=== PATIENT | male | born 1930 | race American Indian/Alaskan Native ===

== ENCOUNTER 2016-06-17 19:53 | Emergency (ER) | payer MEDICARE ==
[2016-06-17 20:00] VITALS: BMI 20.3
[2016-06-17] MEDS ORDERED: Sodium Chloride 0.9% 1,000 ML IV STA (20:10)
[2016-06-17] MEDS ORDERED: TDAP Vaccine 0.5 mL Syr IM ONE (20:10)
[2016-06-17 20:14] VITALS: BP 120/61; PULSE 70; RESP 18; TEMP 97.6; O2SAT 97
--- NOTE | 2016-06-17 20:15 | ED PDOC ---
Arrival/HPI - General Chief Complaint: Trauma Time Seen by Provider: 06/17/16 19:59 Historian: Patient - History of Present Illness Narrative History of Present Illness (Text): 06/17/16 20:12 85 y.o. male whose PMHx includes HTN who according to the , the patient fell and hit his head on the edge of the bed. The son says that when he got there he was unarousable but then eventually started moving. The patient does not recall the event and admits to a headache. No cp or sob or abd pain or n/v or fever. says he drank some etoh earlier. Time/Duration: Prior to Arrival Past Medical History - Cardiac Hx Hypertension: Yes ("borderline") - Psychiatric Hx Substance Use: No - Surgical History Hx Cholecystectomy: Yes Other/Comment: Hernia Sx Family/Social History Family/Social History: Unknown Family HX Smoking Status: Former Smoker Hx Alcohol Use: Yes Frequency of alcohol use: Few days per week Hx Substance Use: No Allergies/Home Meds Allergies/Adverse Reactions: Allergies No Known Allergies Allergy (Verified 06/17/16 20:00) Home Medications: Home Meds Medication Instructions Recorded Confirmed Unobtainable 06/18/16 06/18/16 Review of Systems - Review of Systems Constitutional: absent: Fevers Eyes: Normal ENT: Normal Respiratory: absent: SOB Cardiovascular: Syncope Gastrointestinal: absent: Abdominal Pain, Nausea, Vomiting Genitourinary Male: absent: Dysuria Neurological: Headache. absent: Focal Weakness Physical Exam Vital Signs Temp Pulse Resp BP Pulse Ox 06/17/16 20:10 97.6 F 70 18 120/61 97 Temperature: Afebrile Blood Pressure: Normal Pulse: Regular Respiratory Rate: Normal Appearance: Positive for: Well-Appearing, Non-Toxic, Comfortable Pain Distress: None Mental Status: Positive for: other (Awake, alert, and oriented to person, place , not to time) - Systems Exam Head: Present: Normocephalic, Tenderness, Laceration (There is a 5 cm curved linear laceration if the left parietal area) Pupils: Present: PERRL Extroacular Muscles: Present: EOMI Conjunctiva: Present: Normal Mouth: Present: Moist Mucous Membranes Pharnyx: Present: Normal. No: ERYTHEMA Neck: Present: Normal Range of Motion Respiratory/Chest: Present: Clear to Auscultation, Good Air Exchange. No: Respiratory Distress, Accessory Muscle Use Cardiovascular: Present: Regular Rate and Rhythm, Normal S1, S2. No: Murmurs Abdomen: Present: Normal Bowel Sounds. No: Tenderness, Distention, Peritoneal Signs Back: Present: Normal Inspection. No: Midline Tenderness Upper Extremity: Present: Normal Inspection. No: Cyanosis, Edema Lower Extremity: Present: Normal Inspection. No: Edema Neurological: Present: GCS=15, CN II-XII Intact, Speech Normal Skin: Present: Warm Psychiatric: Present: Alert Medical Decision Making ED Course and Treatment: 06/17/16 23:54 Impression: Patient is a 85 year old male who presents to the emergency department for evaluation of laceration to left parietal area s/p fall from bed prior to arrival. Differential Diagnosis include but are not limited to: Syncope vs alcohol intoxication vs. electrolyte abnormality Plan: -- CT Cervical Spine -- CT head -- EKG -- Labs, cardiac enzymes -- Alcohol level -- Chest X-ray -- IV fluids -- Pelvis X-ray -- Urinalysis -- Reassess and disposition Progress Notes: CT Head results reviewed: IMPRESSION: Subacute/chronic right subdural collection; no acute hemorrhage; atrophy; sinusitis 06/18/16 00:37 CT cervical spine results reviewed: IMPRESSION: Degenerative change, no fracture; dental disease Chest X-ray and Pelvic X-ray No acute findings. 06/18/16 00:43 PROCEDURE: LACERATION REPAIR Performed by the emergency provider Location: Left parietal area Length: 5 cm Description: clean wound edges, no foreign bodies Anesthesia: Lidocaine 1% with epi. Preparation: The wound was irrigated with copious amounts of fluids. The area was prepped and draped in the usual sterile fashion. Exploration: The wound was explored and no foreign bodies were found. Procedure: The wound was closed with 11 leslie. There was good approximation. Post-Procedure: Good closure and hemostasis. The patient tolerated the procedure well and there were no complications. Patient subdural noted on CT scan of the brain; likely chronic. Patient's labs also show dehydration with some etoh on board, a level of 100. Given the history and concern for possible cardiogenic or neurogenic syncope, he needs to be admitted to the hospital. However he is refusing. He is fully awake, alert , and oriented x 3 at this time and understands fully the risks of leaving, including heart attack, arrhythmia, stroke, worsening bleed or permanent disability. He is still insistent on leaving. I had this conversation with him with the and son present. Patient was offered admission to the hospital for observation, but patient wishes to sign out against medical advice. I personally advised the patient to stay in the hospital and discussed the risks of signing out, but patient verbalizes understanding of the risks of leaving and is adamant in his decision. The patient is choosing to leave against medical advice. I have personally explained to the patient that choosing to do so may result in permanent bodily harm or . I have discussed at great length that without further evaluation and monitoring there may be unforeseen circumstances and/or deterioration causing permanent bodily harm or as a result of their choice. The patient is alert, oriented, and shows the mental capacity to make clear decisions regarding the patients health care at this time. The patient continues to wish to leave against medical advice. The patient has been advised that they should return to the emergency room immediately if they change their mind at any time, or if their condition begins to change or worsen in any way. 06/18/16 00:55 Patient signed ama sheet and said he will follow up at the CT. - Lab Interpretations Lab Results: 06/17/16 21:19 06/17/16 21:19 Lab Results 06/17/16 21:19: Alcohol, Quantitative 100 H 06/17/16 21:19: Sodium 139, Potassium 4.4, Chloride 102, Carbon Dioxide 29, Anion Gap 12, BUN 28 H, Creatinine 1.5 H, Est GFR ( Amer) 54, Est GFR ( Non-Af Amer) 44, Random Glucose 103, Calcium 9.5, Magnesium 2.1, Total Bilirubin 0.5, Direct Bilirubin 0.4, AST 32, ALT 29, Alkaline Phosphatase 48, Lactate Dehydrogenase 366, Total Creatine Kinase 82, Troponin I < 0.01, NT-Pro- B Natriuret Pep 224, Total Protein 6.9, Albumin 3.5, Globulin 3.4, Albumin/ Globulin Ratio 1.0 L, Lipase 163 06/17/16 21:19: PT 10.5, INR 0.97, APTT 24.8 06/17/16 21:19: WBC 6.1, RBC 3.81, Hgb 12.8 L, Hct 37.2 L, MCV 97.6, MCH 33.6, MCHC 34.4, RDW 14.9 H, Plt Count 297, MPV 10.2, Gran % 81.7 H, Lymph % (Auto) 7.7 L, [place] % (Auto) 6.5 H, Eos % (Auto) 3.8, Baso % (Auto) 0.3, Gran # 5.00, Lymph # 0.5 L, [place] # 0.4, Eos # 0.2, Baso # 0.02 I have reviewed the lab results: Yes - RAD Interpretation Narrative RAD Interpretations (Text): EXAM: CT Head Without Intravenous Contrast FINDINGS: Brain: There is dilatation of sulci gyri and ventricles. There is no midline shift. There is decreased attenuation in periventricular white matter. There are no focal masses. There are no acute hemorrhages. There is a subacute/chronic right subdural collection. Maximal width is approximate 6.3 mm. Perera-white differentiation is visualized. Ventricles: See above Bones/joints: Bones: Cranial vault is intact. Soft tissues: unremarkable Sinuses: There is left frontal and ethmoid sinusitis. Mastoid air cells: Ears and mastoids: Middle ears and mastoids are unremarkable. Orbits: Orbital contents are unremarkable. IMPRESSION: Subacute/chronic right subdural collection; no acute hemorrhage; atrophy; sinusitis EXAM: CT Cervical Spine result FINDINGS: Vertebrae: There is maintenance of the cervical lordosis. There is no prevertebral soft tissue swelling. Early degenerative changes at multiple levels. There is narrowing which predental space. This is marked disc space narrowing C5/C6. There is vacuum phenomena. There degenerative osteophytes. There is ankylosis of the C6 and C7 vertebral bodies. There is narrowing of remaining cervical disc spaces. There is degenerative facet disease at all levels with joint space narrowing. Facet joints align anatomically.Spinous processes align in the expected fashion.Bony structures are osteopenic. Discs/spinal canal/neural foramina: See above. Soft tissues: See above. Thyroid: Right thyroid suboptimal Lung apices: There is apical scarring bilaterally. Airway: Airway is unremarkable Dental: There is a large erosion in the right mandible. Sinuses: There is mucoperiosteal thickening in the left maxillary sinus IMPRESSION: Degenerative change, no fracture; dental disease Radiology Orders: 06/17/16 20:06 Brain [HEAD W/O CONTRAST] [CT] Stat 06/17/16 20:07 CERVICAL SPINE W/O CONTRAST [CT] Stat CHEST ONE VIEW [RAD] Stat 06/17/16 20:08 PELVIS ONE VIEW [RAD] Stat Field Irrigation Worker: Radiologist - Medication Orders Current Medication Orders: Sodium Chloride (Sodium Chloride 0.9%) 1,000 mls @ 100 mls/hr IV .Q10H STA Stop: 06/18/16 06:09 Last Admin: 06/17/16 21:21 Dose: 100 mls/hr Discontinued Medications Tetanus/Reduced Diphtheria/Acell Pertussis (Boostrix Vaccine Inj) 0.5 ml IM .ONCE ONE Stop: 06/17/16 20:11 Last Admin: 06/17/16 21:21 Dose: 0.5 ml Disposition/Present on Arrival - Present on Arrival Any Indicators Present on Arrival: No History of DVT/PE: No History of Uncontrolled Diabetes: No Urinary Catheter: No History of Decub. Ulcer: No History Surgical Site Infection Following: None - Disposition Have Diagnosis and Disposition been Completed?: Yes Diagnosis: Syncope, Alcohol use, Dehydration, Chronic subdural hematoma Disposition: AGAINST MEDICAL ADVICE Disposition Time: 01:00 Patient Plan: Other (AMA) Condition: UNKNOWN Discharge Instructions (ExitCare): Syncope (ED), Dehydration (ED), Subdural Hematoma (ED) Additional Instructions: You are leaving the hospital against medical advice. You may return to the emergency department at any time. If you choose not do so, recommend going to your doctor as soon as possible. Drink plenty of fluids. Avoid alcohol use. Referrals: Pedro Blanchard, [Primary Care Provider] - Follow up with primary
[2016-06-17 21:31] LABS: ADD MANUAL DIFF? NO
[2016-06-17 21:35] LABS: BASO # 0.02 K/mm3 (0.0-2.0); BASO % 0.3 % (0.0-3.0); EOS # 0.2 (0.0-0.7); EOS % 3.8 % (1.5-5.0); GRAN % 81.7 % (50.0-68.0); HEMATOCRIT 37.2 % (42.0-52.0); LYMPH # 0.5 (1.2-3.4); LYMPH % 7.7 % (22.0-35.0); MEAN CELL VOLUME 97.6 fL (80.0-105.0); MEAN CORPUSCULAR HEMOGLOBIN 33.6 pg (25.0-35.0); MEAN CORPUSCULAR HGB CONC 34.4 g/dl (31.0-37.0); MEAN PLATELET VOLUME 10.2 fl (7.0-11.0); MONO # 0.4 (0.1-0.6); MONO % 6.5 % (1.0-6.0); PLATELET COUNT 297 10^3/uL (120.0-450.0); RED CELL DISTRIBUTION WIDTH 14.9 % (11.5-14.5); WHITE BLOOD COUNT 6.1 10^3/ul (4.5-11.0)
[2016-06-17 21:44] LABS: INR 0.97 (0.93-1.08); PARTIAL THROMBOPLASTIN TIME 24.8 Seconds (23.7-30.8)
[2016-06-17 21:54] LABS: ALKALINE PHOSPHATASE 48 U/L (38-133); ALT/SGPT 29 U/L (7-56); AST/SGOT 32 U/L (15-59); BILIRUBIN,DIRECT 0.4 mg/dL (0.0-0.4); BILIRUBIN,TOTAL 0.5 mg/dL (0.2-1.3); BLOOD UREA NITROGEN 28 mg/dL (7-21); CALCIUM 9.5 mg/dL (8.4-10.5); CARBON DIOXIDE 29 mmol/L (21-33); CHLORIDE 102 mmol/L (98-107); GFR AFRICAN-AMERICAN 54; GLUCOSE,RANDOM 103 mg/dL (70-110); LIPASE 163 U/L (23-300); MAGNESIUM 2.1 mg/dL (1.7-2.2); POTASSIUM 4.4 mmol/L (3.6-5.0); SODIUM 139 mmol/L (132-148); TOTAL PROTEIN 6.9 g/dL (5.8-8.3)
[2016-06-17 22:05] LABS: TROPONIN I < 0.01 ng/mL
--- NOTE | 2016-06-17 23:52 | CT ---
EXAM: CT Head Without Intravenous Contrast CLINICAL HISTORY: 85 years old, male; Injury or trauma; Fall; Initial encounter; Bleeding / hemorrhage; Additional info: Fell and hit head TECHNIQUE: Axial computed tomography images of the head/brain without intravenous contrast. This CT exam was performed using one or more of the following dose reduction techniques: automated exposure control, adjustment of the mA and/or kV according to patient size, and/or use of iterative reconstruction technique. EXAM DATE/TIME: 06/17/2016 8:06 PM COMPARISON: There are no prior studies for comparison. FINDINGS: Brain: There is dilatation of sulci gyri and ventricles. There is no midline shift. There is decreased attenuation in periventricular white matter. There are no focal masses. There are no acute hemorrhages. There is a subacute/chronic right subdural collection. Maximal width is approximate 6.3 mm. Perera-white differentiation is visualized. Ventricles: See above Bones/joints: Bones: Cranial vault is intact. Soft tissues: unremarkable Sinuses: There is left frontal and ethmoid sinusitis. Mastoid air cells: Ears and mastoids: Middle ears and mastoids are unremarkable. Orbits: Orbital contents are unremarkable. IMPRESSION: Subacute/chronic right subdural collection; no acute hemorrhage; atrophy; sinusitis
--- NOTE | 2016-06-18 00:22 | CT ---
EXAM: CT Cervical Spine Without Intravenous Contrast CLINICAL HISTORY: 85 years old, male; Injury or trauma; Fall; Initial encounter; Blunt trauma; Additional info: Fell and hit the back of the head; Loc TECHNIQUE: Axial computed tomography images of the cervical spine without intravenous contrast. This CT exam was performed using one or more of the following dose reduction techniques: automated exposure control, adjustment of the mA and/or kV according to patient size, and/or use of iterative reconstruction technique. Coronal and sagittal reformatted images were created and reviewed. EXAM DATE/TIME: 06/17/2016 8:07 PM COMPARISON: There are no prior studies for comparison. FINDINGS: Vertebrae: There is maintenance of the cervical lordosis. There is no prevertebral soft tissue swelling. Early degenerative changes at multiple levels. There is narrowing which predental space. This is marked disc space narrowing C5/C6. There is vacuum phenomena. There degenerative osteophytes. There is ankylosis of the C6 and C7 vertebral bodies. There is narrowing of remaining cervical disc spaces. There is degenerative facet disease at all levels with joint space narrowing. Facet joints align anatomically.Spinous processes align in the expected fashion.Bony structures are osteopenic. Discs/spinal canal/neural foramina: See above. Soft tissues: See above. Thyroid: Right thyroid suboptimal Lung apices: There is apical scarring bilaterally. Airway: Airway is unremarkable Dental: There is a large erosion in the right mandible. Sinuses: There is mucoperiosteal thickening in the left maxillary sinus IMPRESSION: Degenerative change, no fracture; dental disease
--- NOTE | 2016-06-18 08:37 | RAD ---
PROCEDURE: CHEST RADIOGRAPH, 1 VIEW HISTORY: fall; LOC COMPARISON: None available. FINDINGS: LUNGS: The lungs are well inflated and clear r. PLEURA: No pneumothorax or pleural fluid seen. CARDIOVASCULAR: Normal. OSSEOUS STRUCTURES: No significant abnormalities. VISUALIZED UPPER ABDOMEN: Normal. OTHER FINDINGS: None. IMPRESSION: No active pulmonary disease.
--- NOTE | 2016-06-18 09:23 | RAD ---
PROCEDURE: Radiographs of the pelvis. HISTORY: fall COMPARISON: None. FINDINGS: BONES: Pelvic Bones: Unremarkable. Hips: Grossly unremarkable. JOINTS: Sacroiliac Joints: Unremarkable. Pubic Symphysis: Unremarkable. OTHER FINDINGS: None. IMPRESSION: Unremarkable radiographs of the pelvis.
--- NOTE | 2016-06-18 17:13 | CARD ---
APPROVED REPORT EKG Measurement Heart [id number] <Conclusion> Normal sinus rhythm Left axis deviation Right bundle branch block Septal infarct, age undetermined Abnormal ECG
== END 2016-06-18 00:45 | disposition left against medical advice (07) ==
LOC: ED 19:53
DX: S06.5X9A Traumatic subdural hemorrhage with loss of consciousness of unspecified duration, initial encounter (principal); W06.XXXA Fall from bed, initial encounter; Y92.003 Bedroom of unspecified non-institutional (private) residence as the place of occurrence of the external cause; R55 Syncope and collapse; E86.0 Dehydration; F10.10 Alcohol abuse, uncomplicated; I10 Essential (primary) hypertension; Z87.891 Personal history of nicotine dependence; Z23 Encounter for immunization
CPT/HCPCS: 70450; 71010; 72125; 72170; 80053; 82248; 82550; 83615; 83690; 83735; 83880; 84484; 85025; 85610; 85730; 90471; 90715; 93005; 99285; G0480; J7040